=== PATIENT | male | born 1950 | race Caucasian/White ===

== ENCOUNTER 2021-04-08 13:21 | Observation (INO) ==
[~2021-04-08 13:21] MED LIST: Buffered Lidocaine 1% SYRIN 1 ml INTRADERM ONE; Famotidine IV 10 MG/ML 2 ml VIAL (20 mg) IV ONE; Lactated Ringers 1000 ml BAG 1,000 ML IV SCH
[2021-04-08] MEDS ORDERED: ceFAZolin 2 GM in NS PREMIX 2 GM/100 ML BAG IVPB ONE (13:48)
[2021-04-08] MEDS ORDERED: Famotidine IV 10 MG/ML 2 ml VIAL (20 mg) ONE (13:48)
[2021-04-08] MEDS ORDERED: Dexamethasone IV 4 MG/ML VIAL 1 ml VIAL ONE (15:44)
[2021-04-08] MEDS ORDERED: Lidocaine 2% PF 5 ML VIAL ONE (15:44)
[2021-04-08] MEDS ORDERED: Midazolam 2 mg/2 ml VIAL 1 mg/ml 2 ml VIAL (2 mg) ONE (15:44)
[2021-04-08] MEDS ORDERED: Ondansetron 4 mg VIAL 2 MG/ML 2 ml VIAL ONE (15:44)
[2021-04-08] MEDS ORDERED: Propofol 10 MG/ML 20 ML BTL ONE (15:44)
[2021-04-08] MEDS ORDERED: fentaNYL 250 mcg/5 ml 50 MCG/ML 5 ml VIAL (250 MCG) ONE (15:44)
[2021-04-08] MEDS ORDERED: Clindamycin 900 MG/D5W BAG 900 MG/50 ML BAG IVPB ONE (16:52)
[2021-04-08] MEDS ORDERED: Glycopyrrolate IV 0.2 MG/ML 1 ML VIAL ONE (17:10)
[2021-04-08] MEDS ORDERED: Morphine 2 MG/ML SYRINGE IV PRN (18:00)
[2021-04-08] MEDS ORDERED: diPHENhydraMINE 25 mg TAB PO PRN (18:00)
[2021-04-08] MEDS ORDERED: Ondansetron ODT 4 mg TAB 4 MG TAB PO PRN (18:00)
[2021-04-08] MEDS ORDERED: Magnesium Hydroxide LIQ 30 ML UDC PO PRN (18:00)
[2021-04-08] MEDS ORDERED: Lactulose 30 ml UDC PO PRN (18:00)
[2021-04-08] MEDS ORDERED: Ondansetron 4 mg VIAL 2 MG/ML 2 ml VIAL IV PRN ×2 (18:00→18:10)
[2021-04-08] MEDS ORDERED: diPHENhydraMINE IV 50 MG/ML 1 ml VIAL (BENADRYL) IV PRN ×2 (18:00→18:10)
[2021-04-08] MEDS ORDERED: fentaNYL 100 mcg/2 ml 50 MCG/ML VIAL IV PRN (18:10)
[2021-04-08] MEDS ORDERED: HYDROcodone/ACETAMIN 5/325 mg TAB PO PRN (18:10)
[2021-04-08] MEDS ORDERED: Naloxone 0.4 mg VIAL 0.4 mg/ml 1 ml VIAL IV PRN (18:10)
[2021-04-08] MEDS ORDERED: Metoclopramide 5 MG/ML VIAL (10 mg) IV PRN (18:10)
[2021-04-08] MEDS ORDERED: HYDROmorphone 1 MG/1 ML SYRINGE ONE (18:11)
[2021-04-08] MEDS: HYDROmorphone 1 MG/1 ML SYRINGE IV PRN ×5 (18:12→18:55)
[2021-04-08] MEDS ORDERED: Zosyn per Pharmacy NOTE FOLLOW UP SCH (19:00)
[2021-04-08] MEDS ORDERED: Vancomycin 1,000 MG in NS 0.9% 250 ml 250 ML IVPB SCH (19:00)
[2021-04-08] MEDS ORDERED: Vancomycin per Pharmacy 1 EA NOTE FOLLOW UP PRN (19:49)
[2021-04-08] MEDS ORDERED: ZOSYN 3.375 GM x ONE DOSE over 30 miuntes IV (20:00)
[2021-04-08] MEDS ORDERED: VANCOMYCIN 1250 MG X 1 DOSE, THEN PER PHARMACY PROTOCOL IVPB ONE (20:00)
[2021-04-08 20:45] LABS: EGFR African American 93.7 (>60); EGFR Non-African American 77.4 (>60)
[2021-04-08] MEDS: Magnesium Hydroxide LIQ 30 ML UDC PO SCH (21:15)
[2021-04-09 06:27] LABS: Hematocrit 38 % (42-52); Hemoglobin 13.1 g/dL (14.0-18.0); Mean Platelet Volume 7.5 fL (7.4-10.4); Platelet Count 329 10^3/uL (150-450)
[2021-04-09 06:45] LABS: EGFR African American 89.4 (>60); EGFR Non-African American 73.9 (>60); Potassium 4.3 mmol/L (3.5-5.0)
[2021-04-09] MEDS: ZOSYN 3.375 GM Q8H per EXTENDED INFUSION IV SCH ×2 (07:54)
[2021-04-09] MEDS: Vitamin THERAPEUTIC TAB PO SCH (09:17)
[2021-04-09] MEDS: Magnesium Hydroxide LIQ 30 ML UDC PO SCH ×2 (09:17→20:44)
[2021-04-09 09:28] LABS: C Reactive Protein 2.4 mg/L (<8.01)
[2021-04-09] MEDS: Vancomycin 1,250 MG in NS 0.9% 250 ml 250 ML IVPB SCH ×3 (09:58→22:46)
[2021-04-09 13:26] LABS: Mean Corpuscular HGB Conc 34 g/dL (31-36); Mean Corpuscular Hemoglobin 29 pg (27-31); Mean Corpuscular Volume 86 fL (80-94); Red Blood Count 4.44 10^6 /uL (4.18-5.48); Red Cell Distribution Width 13 % (10-15); White Blood Count 7.7 10^3/uL (3.5-10.8)
[2021-04-09] MEDS ORDERED: ZOSYN 3.375 GM Q8H per EXTENDED INFUSION IV SCH (14:00)
[2021-04-09] MEDS: Cefepime 2 GM in Dextrose 2 GM/50 ML BAG IV SCH (18:13)
[2021-04-10] MEDS: Cefepime 2 GM in Dextrose 2 GM/50 ML BAG IV SCH (06:30)
[2021-04-10 06:45] LABS: Hematocrit 37 % (42-52); Hemoglobin 12.6 g/dL (14.0-18.0); Mean Platelet Volume 7.5 fL (7.4-10.4); Platelet Count 294 10^3/uL (150-450)
[2021-04-10] MEDS: Magnesium Hydroxide LIQ 30 ML UDC PO SCH (08:55)
[2021-04-10] MEDS: Vitamin THERAPEUTIC TAB PO SCH (08:55)
[2021-04-10] MEDS ORDERED: Vancomycin Trough Check NOTE FOLLOW UP ONE (10:00)
[2021-04-10] MEDS: Vancomycin 1,250 MG in NS 0.9% 250 ml 250 ML IVPB SCH ×2 (11:03)
[2021-04-10 11:36] VITALS: BP 133/75
[2021-04-13] MEDS ORDERED: Vancomycin Trough Check NOTE FOLLOW UP ONE (10:00)
== END 2021-04-10 13:30 | disposition home or self-care (01) ==
LOC: SSU 13:21 → OR 13:21
PROVIDERS: ADMIT Orthopaedic Surgery Adult Reconstructive Orthopaedic Surgery; ATTEND Orthopaedic Surgery Adult Reconstructive Orthopaedic Surgery